=== PATIENT | female | born 1935 | race Caucasian/White ===

== ENCOUNTER 2016-05-06 13:26 | Outpatient (CLI) | payer OTHER, BC ==
--- NOTE | 2016-05-06 19:10 | DIAGNOSTIC IMAGING REPORT ---
PROCEDURE: US ART LOWER EXT WITH KASSANDRA-B/L INDICATION: Peripheral vascular disease. Left os cyanosis. TECHNIQUE: Preexercise ABIs were performed. The patient was exercised (toe-ups) and postexercise ABIs were repeated followed by color Doppler duplex imaging of the lower extremities. COMPARISON: None. FINDINGS: Preliminary images demonstrate monophasic flow in the abdominal aorta (53 cm second) with marked calcified atheromatous changes. RIGHT LOWER EXTREMITY: ABIs: Pre exercise ABIs are severely diminished (posterior tibial 0.441, dorsalis pedis 0.44), and worsened with exercise (posterior tibial 0.23, dorsalis pedis 0.20). VESSELS: Moderate calcified atheromatous changes of the right lower extremity arterial system. RIGHT LOWER EXTREMITY PEAK SYSTOLIC VELOCITIES: External iliac: Monophasic 71 cm/second. Common femoral artery: Monophasic 85 cm/second. Profunda femoral artery: Monophasic 61 cm/second. Proximal superficial femoral artery: Monophasic 52 cm/second. Mid superficial femoral artery: Monophasic 59 cm/second. Distal superficial femoral artery: Monophasic 72 cm/second. Popliteal artery: Monophasic 35 cm/second. Proximal posterior tibial artery: Monophasic 22 cm/second. Proximal anterior tibial artery: Monophasic 45 cm/second. Peroneal artery: N/A cm/second. Distal posterior tibial artery: Monophasic 22 cm/second. Dorsalis pedis artery: Monophasic 33 cm/second. LEFT LOWER EXTREMITY: ABIs: Pre exercise ABIs are severely diminished (posterior tibial 0.47, dorsalis pedis 0.35) and for seen following exercise (posterior tibial 0.20, dorsalis pedis 0.15). VESSELS: Moderate calcified atheromatous change of the left lower extremity arterial system. LEFT LOWER EXTREMITY PEAK SYSTOLIC VELOCITIES: External iliac: Monophasic 43 cm/second. Common femoral artery: Monophasic 27 cm/second. Profunda femoral artery: Monophasic 41 cm/second. Proximal superficial femoral artery: Monophasic 348 cm/second. Mid superficial femoral artery: Monophasic 56 cm/second. Distal superficial femoral artery: Monophasic 70 cm/second. Popliteal artery: Monophasic 45 cm/second. Proximal posterior tibial artery: Monophasic 31 cm/second. Proximal anterior tibial artery: Monophasic 27 cm/second. Peroneal artery: N/A cm/second. Distal posterior tibial artery: Monophasic 30 cm/second. Dorsalis pedis artery: Monophasic 24 cm/second. IMPRESSION: 1. Marked calcified atheromatous changes abdominal aorta with monophasic flow. 2. Moderate calcified atheromatous changes of the lower extremity arterial vascular systems. 3. There is severe pre and postexercise arterial insufficiency of the right lower extremity secondary to calcified atheromatous changes with monophasic flow throughout all vessels. 4. There is severe pre and postexercise arterial insufficiency of the left lower extremity secondary to calcified atheromatous changes with monophasic flow throughout all vessels, and high-grade 50-99% stenosis in the proximal left superficial femoral artery (velocity 348 cm second). 5. Findings called to DELFINA Georges. 6. Findings called to Dr. Devon Noguera (as requested).
== END 2016-05-06 23:00 ==
LOC: US SRH 13:26
DX: I73.89 Other specified peripheral vascular diseases (principal); I70.202 Unspecified atherosclerosis of native arteries of extremities, left leg

== ENCOUNTER 2016-05-07 11:21 | Outpatient (CLI) | payer OTHER, BC ==
--- NOTE | 2016-05-07 16:20 | DIAGNOSTIC IMAGING REPORT ---
PROCEDURE: CTA ARTERIAL RUNOFF W/CONTRAST INDICATION: F/U VASCULAR US,MONO PHASIC FLOW,SEVERE CYANOSIS TOE TECHNIQUE: Thin slice axial scans obtained from the lower chest to the feet following 185 ml Isovue 370. Coronal and sagittal re-formations. COMPARISON: Bilateral lower extremity arterial duplex ultrasound 05/06/2016 FINDINGS: Moderate atherosclerosis of the aorta which is patent without dissection or aneurysm. Severe atherosclerosis of the right common and external iliac arteries with scattered high-grade 50-99% stenoses. Severe atherosclerosis of the left common iliac artery with high-grade 50-99% stenosis and a 5 cm long occluded segment of the left external iliac artery with reconstitution distally via collaterals. 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 Right lower extremity: Diffuse moderate atherosclerosis with diffuse severe narrowing of the distal posterior tibial artery and minimal flow at the ankle . Left lower extremity: Diffuse moderate atherosclerosis with high-grade stenosis of the proximal SFA. Visualized liver and spleen are normal. The gallbladder, pancreas, adrenal glands and kidneys are normal. Normal appendix. Mild diverticulosis. IMPRESSION: 1. Moderate diffuse atherosclerosis 2. 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 Scattered high-grade 50-99% stenoses of the right common and external iliac arteries 5. Diffuse severe narrowing of the distal right posterior tibial artery with minimal flow at the ankle 6. High-grade stenosis of the left proximal SFA
== END 2016-05-07 23:00 ==
LOC: CT SRH 11:21
DX: R23.0 Cyanosis (principal); I72.3 Aneurysm of iliac artery; I77.1 Stricture of artery; I70.202 Unspecified atherosclerosis of native arteries of extremities, left leg

== ENCOUNTER 2016-05-11 08:53 | Emergency (ER) | payer OTHER, BC ==
--- NOTE | 2016-05-11 12:11 | ED ORDER SUMMARY ---
..... Patient: GAVINO CLEVELAND OrderSheet [facility] VisitID: [id number] [address] [place] [address] 80y, F Registration Date/Time: 05/11/2016 ORDER SHEET Weight: 68.0 kg (stated) Allergies: Sudafed GENERAL ORDERS: MEDICATION ORDERS: IV FLUIDS: Demerol IV 12.5 mg (NOW) (10:35 05/11/2016 aKya GOLDEN) (10:54 Jessica Curry.N.) IV Saline Lock (10:35 05/11/2016 Kaya GOLDEN) (10:54 Jessica R.N.) ORDER SHEET NOTES: [Electronically signed by Jose Guadalupe Nicole R.N. (12:32 05/11/2016)] [Electronically signed by Klaus Argueta MD (14:27 05/12/2016)] [Electronically locked/signed by Jose Guadalupe Nicole R.N. (12:32 05/11/2016)]
--- NOTE | 2016-05-11 12:11 | ED ORDER SUMMARY ---
..... Patient: GAVINO CLEVELAND OrderSheet [facility] VisitID: [id number] [address] [place] [address] 80y, F Registration Date/Time: 05/11/2016 ORDER SHEET Weight: 68.0 kg (stated) Allergies: Sudafed GENERAL ORDERS: MEDICATION ORDERS: IV FLUIDS: Demerol IV 12.5 mg (NOW) (10:35 05/11/2016 Kaya GOLDEN) (10:54 Jessica Curry.N.) IV Saline Lock (10:35 05/11/2016 Kaya GOLDEN) (10:54 Jessica R.N.) ORDER SHEET NOTES: [Electronically signed by Jose Guadalupe Nicole R.N. (12:32 05/11/2016)] [Electronically signed by Klaus Argueta MD (14:27 05/12/2016)] [Electronically locked/signed by Jose Guadalupe Nicole R.N. (12:32 05/11/2016)]
--- NOTE | 2016-05-11 12:11 | ED CLINICAL REPORT ---
Clinical Report - Physicians/Mid Levels [facility] [address] [address] 05/11/2016 8:57 Patient: GAVINO CLEVELAND Time Seen: 10:19 May 11 2016. Arrived- By private vehicle. Historian- patient. CPT: ER phys charges level 4 (#[id number]). HISTORY OF PRESENT ILLNESS Chief Complaint: LOWER EXTREMITY PAIN. Severity is described as being moderate. It has become recently worse. The quality is noted to be aching and "pain". Modifying factors- worsened by walking. Relieved by sitting. This started last night and is still present (worse; Purple 5th toe is chronic but pain is new. Due to see Dr Noguera tomorrow for appointment to discuss this very issue.). Symptoms located in the area of the left foot. The patient has had swelling. She has had difficulty walking. Sensory loss. Patient denies an injury. Similar symptoms previously: Milder. Recent medical care: The patient was seen recently at another facility in the office. Seen for similar symptoms. Evaluation/treatment- Vascular studies showing occlusion. ( Due to discuss results with Dr Noguera tomorrow in the office.). REVIEW OF SYSTEMS No cough, chest pain, difficulty breathing, fever or skin rash. No enlarged lymph nodes, sore throat, abdominal pain, vomiting or diarrhea. No black stools, difficulty with urination or bloody stools. All systems otherwise negative, except as recorded above. PAST HISTORY Hypertension. Moderate peripheral vascular disease: involving the left leg with claudication. ( COPD HHN QID). Hyperlipidemia. Additional Surgeries: no known surgeries. Medications: Ipratropium-Albuterol Inhalation (Solution 0.5-2.5 (3) mg/3mL). Metoprolol Tartrate Oral 25 mg, bid. Uses oxygen at night . Advil Oral, as needed. Benadryl Oral, as needed. Allergies: Sudafed. SOCIAL HISTORY Never smoker. No alcohol use or drug use. ADDITIONAL NOTES The nursing notes have been reviewed. PHYSICAL EXAM Vital Signs: 05/11/2016 09:05 BP: 183/60. HR: 82. RR: 16. O2 saturation: 93%. Temp: 98 F. Pain level now: 8/10. Appearance: Alert. Patient in mild distress. Eyes: Eyes normal inspection. ENT: Pharynx normal. Neck: Normal inspection. CVS: Normal heart rate and rhythm. Respiratory: No respiratory distress. Decreased air movement. Back: No tenderness. Skin: Skin intact. Skin warm and dry. Normal skin color. (other than noted above). Extremities: Left foot: moderate tenderness, mild swelling and medium sized ecchymosis of the fifth toe. Limited weight bearing secondary to pain. (Isolated left , small toe with vascular insufficiency and ecchymosis. Both feet are otherwise symmetric in appearance, are warm, pink and non-tender.). Neuro: Oriented X 3. No motor deficit. No sensory deficit. PROGRESS AND PROCEDURES Course of Care: Heplock Demerol 12.5 mg IV Patient is stable. Symptoms much better. Discussed case with patient's primary care provider, (Poornima). Reviewed test results. Agreed upon treatment plan. Health care provider will see patient in office. Patient/family counseled. Disposition: Discharged. Condition: unchanged. CLINICAL IMPRESSION Acute vascular insufficiency to the left small toe. INSTRUCTIONS Your Current Medications: CONTINUE TAKING THE FOLLOWING MEDICATIONS: Advil Oral : prn. Benadryl Oral : prn. Ipratropium-Albuterol Inhalation : Solution 0.5-2.5 (3) mg/3mL. Metoprolol Tartrate Oral : 25 mg bid. Uses oxygen at night *. Prescription Medications: Hydrocodone/APAP 5mg/325mg: take 1 to 2 orally every 6 hours as needed for pain. Dispense fifteen (15). No refills. Follow-up: Return to the emergency department If pain or blue color changes increase. Understanding of the discharge instructions verbalized by patient and family. Follow-up with: Devon Noguera MD, General Surgeon, , [facility], [address] [place] [address] Follow up tomorrow as scheduled. (Electronically signed by Klaus Argueta MD 05/12/2016 14:27)
--- NOTE | 2016-05-11 12:11 | ED NURSING NOTES ---
Clinical Report - Nurses [facility] [address] [place] [address] 05/11/2016 8:57 Patient: GAVINO CLEVELAND TRIAGE Triage time 0905. Chief Complaint: INJURY TO THE LEFT FIFTH TOE (NO INJURY, pain and redness). --09:08 Jose Guadalupe Nicole R.N. 09:05 05/11/16. BP: 183/60. HR: 82. RR: 16. O2 saturation: 93%. Temp: 98 F (oral). Pain level now: 12/10. --09:08 Jose Guadalupe Nicole R.N. Alert. No acute distress. KAZ COMA SCORE: Kaz Coma Scale: 15- eyes open spontaneously (4); best verbal response- oriented x 4 (5); best motor response- obeys commands (6). --09:09 Jose Guadalupe Nicole R.N. Weight: 68 kg stated. Height/Length: 60 inches Per Patient. BMI: 29.3. --09:08 Jose Guadalupe Nicole R.N. Medications Advil Oral, as needed. Benadryl Oral, as needed. --09:06 Jose Guadalupe Nicole R.N. Metoprolol Tartrate Oral 25 mg, bid. Uses oxygen at night . --09:06 Jose Guadalupe Nicole R.N. Ipratropium-Albuterol Inhalation (Solution 0.5-2.5 (3) mg/3mL). --09:07 Jose Guadalupe Nicole R.N. Allergies Sudafed. --09:06 Jose Guadalupe Nicole R.N. History Arrived by private vehicle. Historian: patient. Accompanied by family. The patient has had trouble walking. SOCIAL HX: Never smoker. Alcohol use. (no). History of drug use. (no). FALL RISK ASSESSMENT: Fall risk assessment completed. No fall risk identified. NUTRITIONAL RISK ASSESSMENT: The nutritional risk assessment revealed no deficiencies. FUNCTIONAL ASSESSMENT: Functional assessment: no impairments noted. LEARNING NEEDS ASSESSMENT: The learning needs assessment revealed no barriers. SKIN INTEGRITY ASSESSMENT: Skin integrity risk assessment completed. No skin integrity risk identified. --09:08 Jose Guadalupe Nicole R.N. PROBLEMS: Atypical Chest Pain. Hypertension. Hypercholesterolemia. Allergies. COPD - Chronic Obstructive Pulmonary Disease. --09:07 Jose Guadalupe Nicole R.N. ADDITIONAL SURGERIES: no known surgeries. PHYSICAL ASSESSMENT Ambulatory to room. GENERAL / NEURO / PSYCH: Oriented X 4. Alert. Appears in no acute distress. EXTREMITIES: Pain with weight bearing. SKIN: Skin is pale. --09:13 Jose Guadalupe Nicole R.N. NURSING PROGRESS NOTES 10:54 05/11/2016 Site #1 started via IV in the right antecubital space with an 18g angiocath; one attempt. Blood drawn: rainbow set. Labeled in the presence of the patient and held. Saline lock flushed with 10 mL saline. --10:54 Jose Guadalupe Nicole R.N. 10:54 05/11/2016 Demerol (Meperidine HCl) IVP 12.5 mg given over 2 minute(s) via site #1. Allergies verified and confirmed 5 rights. IV patency established. IV site checked: no pain, redness, or swelling. IV flushed thoroughly pre- and post-medication administration. IVP given by RN. --10:54 Jose Guadalupe Nicole R.N. The patient is calm and resting quietly. Overall patient status is improved- she states feels better. --11:48 Jose Guadalupe Nicole R.N. 11:47 05/11/16. BP: 155/53. HR: 51. RR: 16. O2 saturation: 99%. Pain level now: 08/10. --11:48 Jose Guadalupe Nicole R.N. DISPOSITION / DISCHARGE Condition at departure: improved. The goals identified in the patient's plan of care were met. No learning barriers present. Discharge instructions provided and reviewed with the patient. Reviewed medication(s) side effects, precautions, dosing and course information. Prescription(s) given to the patient. Reviewed foot care instructions. Reviewed referral to a surgeon. Reviewed need for increased fluid intake. Activity restrictions (minimal use of injured extremity) reviewed. Follow up contact number. Patient verbalized understanding. Written instructions provided in Greek. The patient was discharged home and accompanied by family. She left the Emergency Department ambulatory and via private vehicle. Family member driving. FALL RISK ASSESSMENT: Fall risk assessment completed. No fall risk identified. --12:31 Jose Guadalupe Nicole R.N. 12:29 05/11/16. BP: 155/53. HR: 65. RR: 16. O2 saturation: 100% on room air. Temp: 98 F. Pain level now: 09/09. --12:31 Jose Guadalupe Nicole R.N. Departure time: 1231 PM. --12:31 Jose Guadalupe Nicole R.N. 12:31 05/11/2016 Site #1 removed upon discharge. Catheter intact. Pressure dressing applied. --12:31 Jose Guadalupe Nicole R.N. Locked/Released at 05/11/2016 12:32 by Jose Guadalupe Nicole R.N.
--- NOTE | 2016-05-11 12:11 | ED CLINICAL REPORT ---
Clinical Report - Physicians/Mid Levels [facility] [address] [address] 05/11/2016 8:57 Patient: GAVINO CLEVELAND Time Seen: 10:19 May 11 2016. Arrived- By private vehicle. Historian- patient. CPT: ER phys charges level 4 (#[id number]). HISTORY OF PRESENT ILLNESS Chief Complaint: LOWER EXTREMITY PAIN. Severity is described as being moderate. It has become recently worse. The quality is noted to be aching and "pain". Modifying factors- worsened by walking. Relieved by sitting. This started last night and is still present (worse; Purple 5th toe is chronic but pain is new. Due to see Dr Noguera tomorrow for appointment to discuss this very issue.). Symptoms located in the area of the left foot. The patient has had swelling. She has had difficulty walking. Sensory loss. Patient denies an injury. Similar symptoms previously: Milder. Recent medical care: The patient was seen recently at another facility in the office. Seen for similar symptoms. Evaluation/treatment- Vascular studies showing occlusion. ( Due to discuss results with Dr Noguera tomorrow in the office.). REVIEW OF SYSTEMS No cough, chest pain, difficulty breathing, fever or skin rash. No enlarged lymph nodes, sore throat, abdominal pain, vomiting or diarrhea. No black stools, difficulty with urination or bloody stools. All systems otherwise negative, except as recorded above. PAST HISTORY Hypertension. Moderate peripheral vascular disease: involving the left leg with claudication. ( COPD HHN QID). Hyperlipidemia. Additional Surgeries: no known surgeries. Medications: Ipratropium-Albuterol Inhalation (Solution 0.5-2.5 (3) mg/3mL). Metoprolol Tartrate Oral 25 mg, bid. Uses oxygen at night . Advil Oral, as needed. Benadryl Oral, as needed. Allergies: Sudafed. SOCIAL HISTORY Never smoker. No alcohol use or drug use. ADDITIONAL NOTES The nursing notes have been reviewed. PHYSICAL EXAM Vital Signs: 05/11/2016 09:05 BP: 183/60. HR: 82. RR: 16. O2 saturation: 93%. Temp: 98 F. Pain level now: 8/10. Appearance: Alert. Patient in mild distress. Eyes: Eyes normal inspection. ENT: Pharynx normal. Neck: Normal inspection. CVS: Normal heart rate and rhythm. Respiratory: No respiratory distress. Decreased air movement. Back: No tenderness. Skin: Skin intact. Skin warm and dry. Normal skin color. (other than noted above). Extremities: Left foot: moderate tenderness, mild swelling and medium sized ecchymosis of the fifth toe. Limited weight bearing secondary to pain. (Isolated left , small toe with vascular insufficiency and ecchymosis. Both feet are otherwise symmetric in appearance, are warm, pink and non-tender.). Neuro: Oriented X 3. No motor deficit. No sensory deficit. PROGRESS AND PROCEDURES Course of Care: Heplock Demerol 12.5 mg IV Patient is stable. Symptoms much better. Discussed case with patient's primary care provider, (Poornima). Reviewed test results. Agreed upon treatment plan. Health care provider will see patient in office. Patient/family counseled. Disposition: Discharged. Condition: unchanged. CLINICAL IMPRESSION Acute vascular insufficiency to the left small toe. INSTRUCTIONS Your Current Medications: CONTINUE TAKING THE FOLLOWING MEDICATIONS: Advil Oral : prn. Benadryl Oral : prn. Ipratropium-Albuterol Inhalation : Solution 0.5-2.5 (3) mg/3mL. Metoprolol Tartrate Oral : 25 mg bid. Uses oxygen at night *. Prescription Medications: Hydrocodone/APAP 5mg/325mg: take 1 to 2 orally every 6 hours as needed for pain. Dispense fifteen (15). No refills. Follow-up: Return to the emergency department If pain or blue color changes increase. Understanding of the discharge instructions verbalized by patient and family. Follow-up with: Devon Noguera MD, General Surgeon, , [facility], [address] [place] [address] Follow up tomorrow as scheduled. (Electronically signed by Klaus Argueta MD 05/12/2016 14:27)
--- NOTE | 2016-05-12 14:27 | ED MAR SUMMARY ---
..... Medication Administration Record [facility] [address] [place] [address] Patient: GAVINO CLEVELAND Visit ID: [id number] 80y, F Weight: 68.0 kg Height/Length: 60 in BMI: 29.3 ALLERGIES: Sudafed Given 10:54 05/11/2016 Jose Guadalupe Nicole RJacque Medication Administered: DEMEROL [IVP] (MEPERIDINE HCL), Dose: 12.5 mg IVP over 2 minute(s), Site: #1 right AC. Medication Ordered: Demerol IV 12.5 mg (NOW).
--- NOTE | 2016-05-12 14:27 | ED DISCHARGE INSTRUCTIONS ---
Patient: GAVINO CLEVELAND General Instructions [facility] VisitID: [id number] [address] [place] [address] 80y, F Registration Date/Time: 05/11/2016 Acute vascular insufficiency to the left small toe. INSTRUCTIONS Your Current Medications: CONTINUE TAKING THE FOLLOWING MEDICATIONS: Advil Oral : prn. Benadryl Oral : prn. Ipratropium-Albuterol Inhalation : Solution 0.5-2.5 (3) mg/3mL. Metoprolol Tartrate Oral : 25 mg bid. Uses oxygen at night *. Prescription Medications: Hydrocodone/APAP 5mg/325mg: take 1 to 2 orally every 6 hours as needed for pain. Dispense fifteen (15). No refills. Follow-up: Return to the emergency department If pain or blue color changes increase. Understanding of the discharge instructions verbalized by patient and family. Follow-up with: Devon Noguera MD, General Surgeon, , [facility], [address] [place] [address] Follow up tomorrow as scheduled. (Electronically signed by Klaus Argueta MD 05/12/2016 14:27)
--- NOTE | 2016-05-12 14:27 | ED MED RECONCILIATION SUMMARY ---
Patient: GAVINO CLEVELAND Medication Reconciliation Report [facility] VisitID: [id number] [address] [place] [address] 80y, F Registration Date/Time: 05/11/2016 Weight: 68.0 kg Height/Length: 60 in. BMI: 29.3 ALLERGIES: Sudafed The patient's Home Medications are listed below: CONTINUE TAKING THE FOLLOWING MEDICATIONS: Advil Oral Benadryl Oral Ipratropium-Albuterol Inhalation (0.5-2.5 (3) mg/3mL) Metoprolol Tartrate Oral 25 mg, bid Uses oxygen at night The source(s) of the original Home Medication information: Not obtained. The following Medications were given to the patient in the Emergency Department: Demerol [IVP] IVP 12.5 mg, administered: 05/11/2016 10:54:00 AM The following Medications were prescribed to the patient: Hydrocodone/APAP 5mg/325mg: take 1 to 2 orally every 6 hours as needed for pain. Dispense fifteen (15). No refills. -- Klaus Argueta MD
--- NOTE | 2016-05-12 14:27 | ED MAR SUMMARY ---
..... Medication Administration Record [facility] [address] [place] [address] Patient: GAVINO CLEVELAND Visit ID: [id number] 80y, F Weight: 68.0 kg Height/Length: 60 in BMI: 29.3 ALLERGIES: Sudafed Given 10:54 05/11/2016 Jose Guadalupe Nicole RJacque Medication Administered: DEMEROL [IVP] (MEPERIDINE HCL), Dose: 12.5 mg IVP over 2 minute(s), Site: #1 right AC. Medication Ordered: Demerol IV 12.5 mg (NOW).
--- NOTE | 2016-05-12 14:27 | ED DISCHARGE INSTRUCTIONS ---
Patient: GAVINO CLEVELAND General Instructions [facility] VisitID: [id number] [address] [place] [address] 80y, F Registration Date/Time: 05/11/2016 Acute vascular insufficiency to the left small toe. INSTRUCTIONS Your Current Medications: CONTINUE TAKING THE FOLLOWING MEDICATIONS: Advil Oral : prn. Benadryl Oral : prn. Ipratropium-Albuterol Inhalation : Solution 0.5-2.5 (3) mg/3mL. Metoprolol Tartrate Oral : 25 mg bid. Uses oxygen at night *. Prescription Medications: Hydrocodone/APAP 5mg/325mg: take 1 to 2 orally every 6 hours as needed for pain. Dispense fifteen (15). No refills. Follow-up: Return to the emergency department If pain or blue color changes increase. Understanding of the discharge instructions verbalized by patient and family. Follow-up with: Devon Noguera MD, General Surgeon, , [facility], [address] [place] [address] Follow up tomorrow as scheduled. (Electronically signed by Klaus Argueta MD 05/12/2016 14:27)
--- NOTE | 2016-05-12 14:27 | ED MED RECONCILIATION SUMMARY ---
Patient: GAVINO CLEVELAND Medication Reconciliation Report [facility] VisitID: [id number] [address] [place] [address] 80y, F Registration Date/Time: 05/11/2016 Weight: 68.0 kg Height/Length: 60 in. BMI: 29.3 ALLERGIES: Sudafed The patient's Home Medications are listed below: CONTINUE TAKING THE FOLLOWING MEDICATIONS: Advil Oral Benadryl Oral Ipratropium-Albuterol Inhalation (0.5-2.5 (3) mg/3mL) Metoprolol Tartrate Oral 25 mg, bid Uses oxygen at night The source(s) of the original Home Medication information: Not obtained. The following Medications were given to the patient in the Emergency Department: Demerol [IVP] IVP 12.5 mg, administered: 05/11/2016 10:54:00 AM The following Medications were prescribed to the patient: Hydrocodone/APAP 5mg/325mg: take 1 to 2 orally every 6 hours as needed for pain. Dispense fifteen (15). No refills. -- Klaus Argueta MD
== END 2016-05-11 12:33 | disposition home or self-care (01) ==
LOC: ED SRH 08:53
DX: I99.8 Other disorder of circulatory system (principal); E78.00 Pure hypercholesterolemia, unspecified; I10 Essential (primary) hypertension; J44.9 Chronic obstructive pulmonary disease, unspecified; Z79.899 Other long term (current) drug therapy; Z88.8 Allergy status to other drugs, medicaments and biological substances

== ENCOUNTER 2016-05-15 09:44 | Outpatient (CLI) | payer OTHER, BC ==
--- NOTE | 2016-05-15 13:34 | DIAGNOSTIC IMAGING REPORT ---
PROCEDURE: US BILATERAL CAROTID DOPPLER INDICATION: BRUIT,BILATERAL TECHNIQUE: Color Doppler duplex imaging of the carotid and vertebral vessels. COMPARISON: None. FINDINGS: Moderate plaque formation of the bifurcations bilaterally with possible ulcerative plaque of the left bifurcation and ICA. Tortuous bilateral ICA's. Vessels are patent. Right common carotid artery peak systolic velocity 65 cm/second. Right internal carotid artery peak systolic velocity 142 cm/second. Right external carotid artery peak systolic velocity 194 cm/second. Right lxuhnrtz-vb-kjfytj carotid artery ratio 2.1 Right vertebral artery peak systolic velocity 102 cm/second antegrade. Left common carotid artery peak systolic velocity 71 cm/second. Left internal carotid artery peak systolic velocity 134 cm/second. Left external carotid artery peak systolic velocity 343 cm/second. Left qdkjrvjy-sa-hgfsgv carotid artery ratio 1.9 Left vertebral artery peak systolic velocity 113 cm/second antegrade. IMPRESSION: 1. 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 Bilateral ICA 50-69% stenosis 3. Bilateral ECA 50-99% stenosis Velocity criteria are extrapolated from diameter data as defined by the Society of Radiologists in Ultrasound Consensus Conference, Radiology 2003; 229; 340-346.
--- NOTE | 2016-05-15 13:34 | DIAGNOSTIC IMAGING REPORT ---
PROCEDURE: US BILATERAL CAROTID DOPPLER INDICATION: BRUIT,BILATERAL TECHNIQUE: Color Doppler duplex imaging of the carotid and vertebral vessels. COMPARISON: None. FINDINGS: Moderate plaque formation of the bifurcations bilaterally with possible ulcerative plaque of the left bifurcation and ICA. Tortuous bilateral ICA's. Vessels are patent. Right common carotid artery peak systolic velocity 65 cm/second. Right internal carotid artery peak systolic velocity 142 cm/second. Right external carotid artery peak systolic velocity 194 cm/second. Right zhirfgkn-za-wmidbn carotid artery ratio 2.1 Right vertebral artery peak systolic velocity 102 cm/second antegrade. Left common carotid artery peak systolic velocity 71 cm/second. Left internal carotid artery peak systolic velocity 134 cm/second. Left external carotid artery peak systolic velocity 343 cm/second. Left mceeerbj-qf-hlknsx carotid artery ratio 1.9 Left vertebral artery peak systolic velocity 113 cm/second antegrade. IMPRESSION: 1. 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 Bilateral ICA 50-69% stenosis 3. Bilateral ECA 50-99% stenosis Velocity criteria are extrapolated from diameter data as defined by the Society of Radiologists in Ultrasound Consensus Conference, Radiology 2003; 229; 340-346.
== END 2016-05-15 23:00 ==
LOC: US SRH 09:44
DX: I65.23 Occlusion and stenosis of bilateral carotid arteries (principal)

== ENCOUNTER 2016-06-06 08:02 | Inpatient (IN) | payer OTHER, BC ==
[~2016-06-06] VITALS: Ht 152.4 cm; Wt 65.4 kg
--- NOTE | 2016-06-06 09:31 | DIAGNOSTIC IMAGING REPORT ---
PROCEDURE: XR CHEST 1 VIEW INDICATION: SHORTNESS OF BREATH TECHNIQUE: Portable AP view 08:31 a.m. COMPARISON: Chest x-ray 01/22/2013 FINDINGS: Mild left basilar scarring. Heart and mediastinum are normal. Thorax is normal. IMPRESSION: 1. Mild left basilar scarring.
--- NOTE | 2016-06-06 09:53 | ED ORDER SUMMARY ---
..... 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 Distress) (08:15 06/06/2016 Sol Flanagan) (Ack 8:19 TBergley) (8:40 LWhalen R.N.) Oxygen (titrate to sats > 94%) (Non-Rebreather Mask) (08:15 06/06/2016 Sol Flanagan) (Ack 8:19 TBergley) (8:40 LWhalen R.N.) CBC w Diff Urgent (08:06/06/2016 Sol Flanagan) (Ack 8:17 TBergley) (8:41 LWhalen R.N.) CMP Urgent (08:16 06/06/2016 Sol Flanagan) (Ack 8:17 TBergley) (8:41 LWhalen R.N.) UA-Culture if indicated Urgent (08:16 06/06/2016 Sol Flanagan) (Ack 8:17 TBergley) (8:40 LWhalen R.N.) Lactate, Serum Urgent (08:06/06/2016 Sol Flanagan) (Ack 8:17 TBergley) (8:40 LWhalen R.N.) Pulse oximeter (08:16 06/06/2016 Sol Flanagan) (Ack 8:19 TBergley) (8:40 LWhalen R.N.) Troponin-I Urgent (08:44 06/06/2016 Sol Flanagan) (Ack 8:46 TBergley) BNP Urgent (08:45 06/06/2016 Sol Flanagan) (Ack 8:46 TBergley) Rapid Influenza Screen (Nasal Pharyngeal) (swab) Urgent (10:49 06/06/2016 Kaya GOLDEN) (Ack 10:51 TBergley) MEDICATION ORDERS: Albuterol Neb Tx 7.5 mg (one now over 1 hour) (08:16 06/06/2016 Sol Flanagan) (8:28 Lolita) Diltiazem PO 30 mg (NOW) (10:00 06/06/2016 Kaya GOLDEN) (10:21 LWhalen R.N.) IV FLUIDS: Decadron IV 10 mg (NOW) (08:16 06/06/2016 Sol Flanagan) (8:40 LWhalen R.N.) IV Saline Lock (08:16 06/06/2016 Sol Flanagan) (Ack 8:41 LWhalen R.N.) (11:21 LWhalen R.N.) Cardizem IV 12 mg IV (NOW) (09:38 06/06/2016 Kaya GOLDEN) (10:06 LWhalen R.N.) Diltiazem IV 10 mg (NOW) (09:59 06/06/2016 Kaya GOLDEN) (10:21 LWhalen R.N.) Rocephin IV 2 gm/50mL (NOW) (10:03 06/06/2016 Kaya GOLDEN) (10:23 LWhalen R.N.) ORDER SHEET NOTES: [Electronically signed by Larissa Mcdaniel R.N. (14:55 06/06/2016)] [Electronically signed by Klaus Argueta MD (21:42 06/09/2016)] [Electronically locked/signed by Larissa Mcdaniel R.N. (14:55 06/06/2016)]
--- NOTE | 2016-06-06 09:53 | ED ORDER SUMMARY ---
..... 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) (08:15 06/06/2016 Sol Flanagan) (Ack 8:19 TBergley) (8:40 LWhalen R.N.) Oxygen (titrate to sats > 94%) (Non-Rebreather Mask) (08:15 06/06/2016 Sol Flanagan) (Ack 8:19 TBergley) (8:40 LWhalen R.N.) CBC w Diff Urgent (08:06/06/2016 Sol Flanagan) (Ack 8:17 TBergley) (8:41 LWhalen R.N.) CMP Urgent (08:16 06/06/2016 Sol Flanagan) (Ack 8:17 TBergley) (8:41 LWhalen R.N.) UA-Culture if indicated Urgent (08:16 06/06/2016 Sol Flanagan) (Ack 8:17 TBergley) (8:40 LWhalen R.N.) Lactate, Serum Urgent (08:06/06/2016 Sol Flanagan) (Ack 8:17 TBergley) (8:40 LWhalen R.N.) Pulse oximeter (08:16 06/06/2016 Sol Flanagan) (Ack 8:19 TBergley) (8:40 LWhalen R.N.) Troponin-I Urgent (08:44 06/06/2016 Sol Flanagan) (Ack 8:46 TBergley) BNP Urgent (08:45 06/06/2016 Sol Flanagan) (Ack 8:46 TBergley) Rapid Influenza Screen (Nasal Pharyngeal) (swab) Urgent (10:49 06/06/2016 Kaya GOLDEN) (Ack 10:51 TBergley) MEDICATION ORDERS: Albuterol Neb Tx 7.5 mg (one now over 1 hour) (08:16 06/06/2016 Sol Flanagan) (8:28 Lolita) Diltiazem PO 30 mg (NOW) (10:00 06/06/2016 Kaya GOLDEN) (10:21 LWhalen R.N.) IV FLUIDS: Decadron IV 10 mg (NOW) (08:16 06/06/2016 Sol Flanagan) (8:40 LWhalen R.N.) IV Saline Lock (08:16 06/06/2016 Sol Flanagan) (Ack 8:41 LWhalen R.N.) (11:21 LWhalen R.N.) Cardizem IV 12 mg IV (NOW) (09:38 06/06/2016 Kaya GOLDEN) (10:06 LWhalen R.N.) Diltiazem IV 10 mg (NOW) (09:59 06/06/2016 Kaya GOLDEN) (10:21 LWhalen R.N.) Rocephin IV 2 gm/50mL (NOW) (10:03 06/06/2016 Kaya GOLDEN) (10:23 LWhalen R.N.) ORDER SHEET NOTES: [Electronically signed by Larissa Mcdaniel R.N. (14:55 06/06/2016)] [Electronically signed by Klaus Argueta MD (21:42 06/09/2016)] [Electronically locked/signed by Larissa Mcdaniel R.N. (14:55 06/06/2016)]
--- NOTE | 2016-06-06 09:53 | ED CLINICAL REPORT ---
Clinical Report - Physicians/Mid Levels [facility] [address] [place] [address] 06/06/2016 8:03 Patient: GAVINO CLEVELAND Time Seen: 0805; initial patient contact. Arrived- Patient did not arrive by ambulance. Historian- patient and EMS personnel. CPT: ER phys charges level 5 plus (#[id number]). EKG interpretation (#[id number]). HISTORY OF PRESENT ILLNESS Chief Complaint: DYSPNEA and HISTORY OF CHRONIC OBSTRUCTIVE PULMONARY DISEASE. This started past few days and is still present (staying the same). It was abrupt in onset and has been constant but is not gone now. The dyspnea is described as moderate and is worsened by exertion and is improved by rest. The patient has had a cough and wheezing. (Patient reports no recent antibiotic use. Patient had a recent procedure in which she described the blood vessels were opened up in her leg.). Similar symptoms previously: Many times. Recent medical care: Not recently seen/assessed. REVIEW OF SYSTEMS No muscle aches, sore throat or throat, nasal discharge or sinus drainage. No nausea, vomiting, headache, fainting episodes or blurred vision. No difficulty with urination, excessive urination, skin rash, enlarged lymph nodes or joint pain. No diabetic symptoms or easy bruising. The patient has had weakness. All systems otherwise negative, except as recorded above. PAST HISTORY See nurses notes. SOCIAL HISTORY Former smoker. No alcohol use or drug use. No recent travel. Is a local resident. ADDITIONAL NOTES The nursing notes have been reviewed. PHYSICAL EXAM Vital Signs: 06/06/2016 08:11 BP: 133/83. HR: 68. RR: 18. O2 saturation: 100%. Temp: 97.3 F. Blood pressure normal. Oxygen saturation normal. Appearance: Alert. No acute distress. (Wearing CPAP mask). Eyes: Pupils equal, round and reactive to light. Eyes normal inspection. ENT: Ears normal. Nose normal. Pharynx normal. Uvula midline. Neck: Normal inspection. No jugular venous distention. Neck supple. CVS: Normal heart rate and rhythm. Heart sounds normal. Pulses normal. Respiratory: Mild respiratory distress with accessory muscle use. Expiratory moderate bilateral wheezes diffusely. No stridor, rales or rhonchi. Abdomen: Soft and nontender. No organomegaly. Skin: Skin warm and dry. Normal skin color. No rash. Normal skin turgor. Extremities: Extremities exhibit normal ROM. No lower extremity edema. (left fifth toe is ecchymotic and slightly swollen. Tender to touch. No erythema. No crepitus. No bony abnormalities. No signs of ascending infection. Appears to be ischemic.). Neuro: Oriented X 3. No motor deficit. No sensory deficit. LABS, X-RAYS, AND EKG EKG: Normal sinus rhythm. Rate: 68. Normal P waves. Normal MARIAH. Normal QRS complex. Q waves in lead V1 and V2. Normal axis. Normal ST and T waves, QT and QTc. No ST elevation or depression. normal sinus. Q-waves. No acute ischemia. The study has been interpreted contemporaneously by me. The study has been independently viewed by me. The EKG appears to be a good tracing. EKG #2: Rate: 140. Atrial fibrillation. Non-specific ST segment / T wave abnormalities. Changes present when compared to prior EKG. The study has been interpreted contemporaneously. The study has been independently viewed by me. The EKG appears to be a good tracing. Chest X-ray: (Mild left basilar scarring). Views: AP (portable). Technique: good. The X-rays were independently viewed by me and interpreted by the radiologist. Laboratory Tests: CBC w Diff: (KAIN: 06/06/2016 08:45) ( MsgRcvd 06/06/2016 09:02) IP Test Result Flag Units (Reference) WHITE BLOOD COUNT 11.4 K/uL (4.5-11.5) RED BLOOD COUNT 4.48 M/uL (4.00-5.20) HEMOGLOBIN 9.0 L gm/dL (12.0-16.0) HEMATOCRIT 29.8 L % (36.0-46.0) MEAN CELL VOLUME 66 L fL (80-100) MEAN CORPUSCULAR HGB 20 L pg (26-34) MEAN CORPUSCULAR HGB CONC 30 L g/dL (31-37) RED CELL DISTRIBUTION WIDTH 22.4 H % (11.6-14.8) PLATELET COUNT 498 H K/uL (150-400) BNP: (KAIN: 06/06/2016 08:45) ( [facility] [place] [place] 09:19) Final results Test Result Flag Units (Reference) B-TYPE NATRIURETIC PEPTIDE 465 H pg/ml (5-100) Lactate, Serum: (KAIN: 06/06/2016 08:45) ( [facility] [place] 06/06/2016 09:18) Final results Test Result Flag Units (Reference) LACTIC ACID 1.3 mmol/L (0.4-2.0) CMP: (KAIN: 06/06/2016 08:45) ( [facility] 06/06/2016 09:13) Final results Test Result Flag Units (Reference) GLUCOSE 123 H mg/dL (70-110) BUN 11 mg/dL (7-18) CREATININE 0.8 mg/dL (0.6-1.3) Estimated GFR >60 mL/min Estimated GFR- >60 mL/min Note: Persistent reduction over 3 months in eGFR<60 mL/min/1.73 m2 defines CKD. Patients with eGFR values>=60 mL/min/1.73 m2 may also have CKD if evidence ofpersistent proteinuria. Additional information may be foundat www.[email or web address].org. SODIUM 140 mmol/L (136-145) POTASSIUM 3.9 mmol/L (3.5-5.1) CHLORIDE 101 mmol/L (98-107) CARBON DIOXIDE 31 mmol/L (21-32) CALCIUM 9.0 mg/dL (8.5-10.1) TOTAL PROTEIN 6.8 g/dL (6.4-8.2) ALBUMIN 3.2 L g/dL (3.3-5.0) BILIRUBIN, TOTAL 0.6 mg/dL (0.0-1.0) ALKALINE PHOSPHATASE 113 U/L (46-116) AST (SGOT) 26 U/L (15-37) ALT (SGPT) 32 U/L (12-78) TROPONIN I <0.05 ng/mL (0.00-1.5) TROPONIN REFERENCE RANGE:<0.1 NEGATIVE0.1-1.5 INDETERMINANT>1.5 POSITIVE . PROGRESS AND PROCEDURES Course of Care: The patient is a pleasant 80-year-old female with past medical history significant for COPD. Patient is wheezing on examination. Patient is presented for shortness of breath. At this time differential diagnosis includes COPD exacerbation, pneumonia, or upper respiratory tract infection. Laboratory studies and chest x-ray been ordered. EKG obtained by tech. No ST segmentchanges. Patient also with sick contact. Patient's daughter had upper respiratory tract symptoms per the patient. Workup is Currently pending at this time. At the change of shift, patient will be handed over to the oncoming doctor. Medics gave solumedrol and albuterol in route. 09:39 06/06/16. the nurse notes the patient is not tachycardic. She's been getting stacked albuterol treatments for her wheezing. Her monitor looks like a tachycardia in the 140s its irregular. Patient was previously in sinus rhythm. EKG is done and now she's now in atrial fibrillation with a rate of 140. Patient has a history of being in atrial fibrillation in the past. Diltiazem 12 mg IV delivered. 10:03 06/06/16. discussed with Dr. Morales hospitalist. We'll admit the patient to the hospital for exacerbation of COPD and rapid atrial fibrillation. Dr. Morales wishes to try another IV push of diltiazem followed by 30 mg by mouth to see if we can keep her off IV drip. Patient/family counseled. Old medical records ordered. Disposition orders written. Disposition: Admitted to Acute Care. CLINICAL IMPRESSION Acute exacerbation of COPD (emphysematous) ,paroxysmal atrial fibrillation. The patient has one or more high risk factors and/or two or more moderate risk factors for thromboembolism. The patient is not prescribed warfarin or another FDA approved anticoagulant because the cause of the atrial fibrillation is reversible or transient. (Electronically signed by Klaus Argueta MD 06/09/2016 21:42)
--- NOTE | 2016-06-06 09:53 | ED NURSING NOTES ---
Clinical Report - Nurses [facility] [address] [place] [address] 06/06/2016 8:03 Patient: GAVINO CLEVELAND TRIAGE Triage time 08:11 Jun 06 2016. Acuity: LEVEL 3. Chief Complaint: SHORTNESS OF BREATH, DIFFICULTY BREATHING and WHEEZING. KAYLA COMA SCORE: [place] Coma Scale: 15- eyes open spontaneously (4); best verbal response- oriented x 4 (5); best motor response- obeys commands (6). --08:19 Larissa Mcdaniel R.N. 08:11 06/06/16. BP: 133/83. HR: 68. RR: 18. O2 saturation: 100%. Temp: 97.3 F. Pain level now 0/10. --08:19 Larissa Mcdaniel R.N. Weight: 65.7 kg stated. Height/Length: 60 inches Per Patient. BMI: 28.3. --08:17 Larissa Mcdaniel R.N. Medications Benadryl Oral, as needed. --08:16 Larissa Mcdaniel R.N. Ipratropium-Albuterol Inhalation (Solution 0.5-2.5 (3) mg/3mL). Metoprolol Tartrate Oral 25 mg, bid. Uses oxygen at night . --08:16 Larissa Mcdaniel R.N. Allergies Sudafed. --08:16 Larissa Mcdaniel R.N. History Arrived by EMS, and from home. Historian: patient. The patient has had a cough and wheezing. No fever, chills, chest pain or back pain. PAST MEDICAL HX: Asthma. Chronic obstructive pulmonary disease. No history of congestive heart failure, diabetes mellitus or hypertension. Immunizations: up-to-date. SOCIAL HX: Smoker- current status unknown. No alcohol use or drug use. No infectious disease exposure. SELF HARM ASSESSMENT: A self harm assessment was performed. The patient answered "no" to the question "Have you recently felt down, depressed, or hopeless?" and "Do you have thoughts of harming or killing yourself?". FALL RISK ASSESSMENT: Fall risk assessment completed. No fall risk identified. NUTRITIONAL RISK ASSESSMENT: The nutritional risk assessment revealed no deficiencies. FUNCTIONAL ASSESSMENT: Functional assessment: no impairments noted. LEARNING NEEDS ASSESSMENT: The learning needs assessment revealed no barriers. ABUSE ASSESSMENT: Abuse assessment: (yes) The patient was asked "Do you feel safe in your home?". SKIN INTEGRITY ASSESSMENT: Skin integrity risk assessment completed. No skin integrity risk identified. --08:19 Larissa Mcdaniel R.N. PROBLEMS: Hyperlipidemia. Peripheral Vascular Disease. Atypical Chest Pain. Hypertension. Hypercholesterolemia. Allergies. COPD - Chronic Obstructive Pulmonary Disease. --08:17 Larissa Mcdaniel R.N. ADDITIONAL SURGERIES: no known surgeries. Interventions ID band on patient. --08:19 Larissa Mcdaniel R.N. PHYSICAL ASSESSMENT Ambulatory to room. GENERAL / NEURO / PSYCH: Alert. Oriented X 4. Appears in no acute distress. HEENT: Mucous membranes are pink. RESPIRATORY: Moderate respiratory distress. The patient can speak a few words at a time. Cough. Wheezing present. Rhonchi present. CVS: Normal sinus rhythm noted. Capillary refill less than 2 seconds. GI / : Abdomen soft and nontender. Bowel sounds within normal limits. ( Last BM this am). SKIN: Skin is warm and dry. Normal skin turgor. --08:20 Larissa Mcdaniel R.N. NURSING PROGRESS NOTES The initial plan of care for this patient has been created. Oxygen administered by [id number] at 10 liters. senior clinical research scientist, pulse oximeter and NIBP monitor placed on patient. Patient gowned. Head of bed elevated (45). Reassurance given. Call light placed in reach. Side rails up x 1. Bed placed in lowest position. Brakes of bed on. --08:21 Larissa Mcdaniel R.N. 08:15 06/06/2016 Site #1 started prior to arrival by EMS via IV in the right antecubital space with an 20g angiocath. --08:40 Larissa Mcdaniel R.N. 08:28 06/06/2016 Albuterol Neb TX Nebulizer 3 unit dose given. Given by the respiratory therapist. Allergies verified and confirmed 5 rights. --08:28 Etelvina Harper 08:40 06/06/2016 Decadron IVP 10 mg given over 2 minute(s) via site #1. Allergies verified and confirmed 5 rights. IV patency established. IV site checked: no pain, redness, or swelling. IV flushed thoroughly pre- and post-medication administration. --08:40 Larissa Mcdaniel R.N. 08:20 06/06/16. BP: 147/56. HR: 71. RR: 21. O2 saturation: 100% on nasal cannula at 8 liters/minute. Additional comments: Getting a neb treatment curretly . 08:11 06/06/16. BP: 133/83. HR: 68. RR: 18. O2 saturation: 100%. Temp: 97.3 F. Pain level now 0/10. 08:00 06/06/16. BP: 133/83. HR: 75. RR: 30. O2 saturation: 100% on Venti mask at 10 liters/minute. --08:51 Larissa Mcdaniel R.N. 09:24 06/06/16. BP: 117/61. HR: 136. RR: 26. O2 saturation: 96%. Pain level now 0/10. --09:25 Lairssa Mcdaniel R.N. 09:41 06/06/2016 Cardizem IVP 12 mg given over 2 minute(s) via site #1. Allergies verified and confirmed 5 rights. IV patency established. IV site checked: no pain, redness, or swelling. IV flushed thoroughly pre- and post-medication administration. --10:06 Larissa Mcdaniel R.N. ( H&P given to daughter to assist patient with filling out.). --10:13 Clari Hinojosa 10:21 06/06/2016 Diltiazem IVP 10 mg given over 2 minute(s) via site #1. Allergies verified and confirmed 5 rights. IV patency established. IV site checked: no pain, redness, or swelling. IV flushed thoroughly pre- and post-medication administration. --10:21 Larissa Mcdaniel R.N. 10:21 06/06/2016 Diltiazem PO Capsules 30 mg given. Allergies verified and confirmed 5 rights. --10:21 Larissa Mcdaniel R.N. 10:23 06/06/2016 Started 2 gm of Rocephin (CefTRIAXone Sodium) IVPB in bag #1 50 mL; at 150 mL/hr over 30 minute(s) via site #1 via IV pump. Allergies verified and confirmed 5 rights. IV patency established. IV site checked: no pain, redness, or swelling. IV flushed thoroughly pre- and post-medication administration. --10:23 Larissa Mcdaniel R.N. 10:23 06/06/16. BP: 119/64. HR: 106. RR: 32. O2 saturation: 93%. Pain level now 0/10. --10:24 Larissa Mcdaniel R.N. 10:45 06/06/16. BP: 139/91. HR: 117. RR: 18. O2 saturation: 91% on nasal cannula at 2 liters/minute. 10:23 06/06/16. BP: 119/64. HR: 106. RR: 32. O2 saturation: 93%. Pain level now 0/10. 10:10 06/06/16. BP: 108/67. HR: 99. RR: 24. O2 saturation: 94% on nasal cannula at 2 liters/minute. 09:55 06/06/16. BP: 119/64. HR: 120. RR: 22. O2 saturation: 95% on nasal cannula at 2 liters/minute. 09:30 06/06/16. BP: 114/75. HR: 119. RR: 28. O2 saturation: 95% on nasal cannula at 2 liters/minute. 09:24 06/06/16. BP: 117/61. HR: 136. RR: 26. O2 saturation: 96%. Pain level now 0/10. --11:18 Larissa Mcdaniel R.N. 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 --11:19 Larissa Mcdaniel R.N. 09:20 06/06/2016 Albuterol Neb TX discontinued due to improvement in patient condition. --11:20 Larissa Mcdaniel R.N. 10:55 06/06/2016 Rocephin IVPB Discontinued: bag #1 infused. Total amount infused: 50 mL. IV patency established. IV site checked: no pain, redness, or swelling. IV flushed thoroughly. --11:20 Larissa Mcdaniel R.N. DISPOSITION / DISCHARGE 12:00 06/06/16. BP: 125/59. HR: 105. RR: 26. O2 saturation: 96%. --14:54 Larissa Mcdaniel R.N. 11:55 06/06/2016 Site #[address] upon admission; patent. Good blood return present. --14:55 Larissa Mcdaniel R.N. 12:22 06/06/16. Departure time: 1220. Disposition: observation in Acute Care. Transported via stretcher by transport team with IV and O2. --12:23 Dimitrios Robertson R.N. Locked/Released at 06/06/2016 14:55 by Larissa Mcdaniel R.N.
[2016-06-06 12:56] VITALS: BP 111/43
--- NOTE | 2016-06-06 14:16 | History & Physical Report ---
Admission Admit Date 06/06/16 Information Source Information Source: Self, Family, ED Record History Chief Complaint SOB History of Present Illness 80yoF w/ hx of COPD, PVD, parox afib, who presents due to worsening SOB since last night. She states that one of her family members came home with a cold a couple days ago. She has felt chilled at home, but has not taken her temperature. She only uses O2 at night usually. She has been using all her nebulizers as prescribed 4xd. She does not get exacerbations frequently. She endorses cough, nonproductive. She just had a stent placed in her ?iliac a couple days ago, and states that she went into afib at that time. They increased her lopressor to 50mg 2xd at that time, and have started her on a daily aspirin. Per EMS, patient's O2 sat was 94% on RA, but was placed on cpap for WoB. Her breathing has significantly improved with steroids and nebs in the ED. Patient History 1. COPD (chronic obstructive pulmonary disease) 2. PVD (peripheral vascular disease) Social History Previous smoker, no etoh or drug use. Medications and Allergies Medications Home meds: ASA 324mg, metoprolol 50mg PO BID, Duoneb 4xd, prn benadryl Current Medications Sig/[place] Start time Last Medication Dose Route Stop Time Status Admin Azithromycin 250 MG DAILY 06/07 0900 AC PO Pantoprazole Sodium 40 MG DAILY@0600 06/07 0600 AC Sesquihydrate PO Ipratropium [place] 0.5 MG RTQ6H 06/06 1400 AC 06/06 IN 1333 Levalbuterol HCl 1.25 MG RTQ6H 06/06 1400 AC 06/06 IN 1333 Methylprednisolone 40 MG Q8HR 06/06 1400 AC Sodium Succinate IV Metoprolol Tartrate 50 MG TID 06/06 1400 AC PO Azithromycin 500 MG ONCE 06/06 1245 AC PO Metoprolol Tartrate 5 MG Q4H PRN 06/06 1245 AC IV Sodium Chloride 3 ML ASDIRECTED 06/06 1230 AC IN Enoxaparin Sodium 40 MG QAM 06/06 1133 AC SC Acetaminophen 650 MG Q6H PRN 06/06 1130 AC PO Docusate Sodium 250 MG BID PRN 06/06 1130 AC PO Morphine Sulfate 1 MG Q4H PRN 06/06 1130 AC IV Ondansetron HCl 4 MG Q6H PRN 06/06 1130 AC IV Allergies Coded Allergies: Albuterol (01/30/13) Prednisone (01/30/13) Pseudoephedrine (01/30/13) Review of Systems Other As per HPI, rest of 10point ROS notable for ischemic R 5th toe that is painful, chronic Physical Exam Vital Signs / I&Os Vital Signs Date Time Temp Pulse Resp B/P Pulse O2 O2 Flow FiO2 Ox Delivery Rate 06/06 1333 2.0 06/06 1256 98.2 109 21 111/43 94 Nasal 2.0 Cannula 06/06 0818 2.0 General Appearance Alert, Oriented X3, No acute distress HEENT Atraumatic, PERRLA, Moist mucous membranes Lungs Prolonged expiration and diffuse expiratory wheezing, good air movement. Neck Supple, No JVD Cardiovascular Tachy and irregular rhythm, no murmurs Abdomen Normal bowel sounds, Soft, No tenderness Extremities No edema, R 5th toe purple and tender to touch Skin No Rashes Neurological Normal speech, Normal tone, Sensation intact, Strength 5/5 x4 ext's , No lateralizing signs Psych/Mental Status Mental status normal LAB Results Laboratory Tests 06/06 06/06 06/06 06/06 0845 0845 0845 0844 Chemistry Plasma Sodium (136 - 145 mmol/L) 140 Plasma Potassium (3.5 - 5.1 mmol/L) 3.9 Plasma Chloride (98 - 107 mmol/L) 101 CO2 (Enzymatic) (21 - 32 mmol/L) 31 BUN (7 - 18 mg/dL) 11 Creatinine (0.6 - 1.3 mg/dL) 0.8 Est GFR ( Amer) (mL/min) >60 Est GFR (Non-Af Amer) (mL/min) >60 Glucose (70 - 110 mg/dL) 123 Lactic Acid (0.4 - 2.0 mmol/L) 1.3 Plasma Calcium (8.5 - 10.1 mg/dL) 9.0 Total Bilirubin (0.0 - 1.0 mg/dL) 0.6 AST (15 - 37 U/L) 26 ALT (12 - 78 U/L) 32 Alkaline Phosphatase (46 - 116 U/L) 113 Troponin (0.00 - 1.5 ng/mL) <0.05 Cancelled B-Natriuretic Peptide (5 - 100 pg/ml) 465 Total Protein (6.4 - 8.2 g/dL) 6.8 Albumin (3.3 - 5.0 g/dL) 3.2 Hematology WBC (4.5 - 11.5 K/uL) 11.4 RBC (4.00 - 5.20 M/uL) 4.48 Hgb (12.0 - 16.0 gm/dL) 9.0 Hct (36.0 - 46.0 %) 29.8 MCV (80 - 100 fL) 66 MCH (26 - 34 pg) 20 RDW (11.6 - 14.8 %) 22.4 Neut % (Auto) (50 - 75 %) 76 Lymph % (Auto) (25 - 40 %) 15 [place] % (Auto) (3 - 14 %) 5 Eos % (Auto) (0 - 4 %) 0 Baso % (Auto) (0 - 2 %) 2 Band Neutrophils % (0 - 8 %) 2 Metamyelocytes % (0 - 1 %) 0 Myelocytes (0 - 1 %) 0 Other Cell Type 0 Plt Count, EDTA (150 - 400 K/uL) 498 Hypochromic-Microcytic 4+ Anisocytosis (manual) 4+ Target Cells 1+ Schistocytes 1+ PUBS MCHC (31 - 37 g/dL) 30 Microbiology Date/Time Procedure - Status Source Growth 06/06 1130 Influenza Screen - COMP NASALPHAR Imaging EKG: initial sinus rhythm, repeat afib w/ RVR Assessment and Plan Problem List 1. Acute exacerbation of chronic obstructive pulmonary disease (COPD) Plan With mild hypoxic respiratory failure, as she is currently requiring O2. Will place on solu-medrol 40mg Q8h for today, and monitor for adverse reaction ( patient has gotten rashes with prednisone in the past). Placed on scheduled nebs (with xopenex due to afib w/rvr +ipratropium). No PNA on CXR, so will place on azithromycin for anti-inflammatory effect. Wean O2 as possible. Will test for influenza. 2. Atrial fibrillation with rapid ventricular response Plan Will use xopenex for nebulizer, as this episode seemed to be precipitated by the hour long albuterol neb in the ED. Given several doses of diltiazem in the ED with improvement in her symptoms. Have increased her home metoprolol to 50mg TID, and will monitor her carefully on telemetry. Will continue her on a daily aspirin. 3. PVD (peripheral vascular disease) Plan Continue on aspirin. S/p stenting just a couple days ago, and will follow up with her doctor as an outpatient. FEN: cardiac PPx: lovenox Code: DNR/DNI, per discussion w/ patient and family in ED Dispo: Inpatient for close cardiac monitoring and oxygen support, as will likely require >2MN hospital stay. E&M Codes Admission: Inpt-High/58048
[2016-06-06 14:26] VITALS: BP 120/63
[2016-06-06] MEDS ORDERED: ASPIRIN325 MG PO (17:59)
[2016-06-06] MEDS ORDERED: LOPRESSOR25 MG PO (18:01)
[2016-06-06] MEDS ORDERED: IPRATROPIUM BROMIDE/ (18:02)
[2016-06-06] MEDS ORDERED: BENADRYL ALLERG25 MG PO (18:03)
[2016-06-06 18:22] VITALS: BP 124/62
[2016-06-06 22:30] VITALS: BP 119/51
[2016-06-07 02:42] VITALS: BP 138/55
[2016-06-07 06:40] VITALS: BP 151/63
--- NOTE | 2016-06-07 09:15 | Progress Note ---
Subjective General Breathing a little better, but not at baseline yet. Still requiring O2, and becomes quite dyspnic with ambulation. Also feels very congested. Physical Exam Vital Signs / I&Os Vital Signs Date Time Temp Pulse Resp B/P Pulse O2 O2 Flow FiO2 Ox Delivery Rate 06/07 0830 Nasal 2.0 Cannula 06/07 0820 2.0 06/07 0640 98.2 85 21 151/63 95 Nasal 2.0 Cannula 06/07 0242 98.1 82 21 138/55 95 Room Air 2.0 05 0104 2.0 02/04 2230 98.1 79 21 119/51 98 Room Air 2.0 02/ 2045 Room Air 2.0 /04 1903 2.0 02/04 1822 98.2 109 21 124/62 97 Room Air 2.0 02/04 1426 98.2 109 21 120/63 98 Nasal 2.0 Cannula 06/06 1333 2.0 02/ 1256 98.2 109 21 111/43 94 Nasal 2.0 Cannula 06/06 1230 Nasal 2.0 Cannula I&O 06/07 0000 06/06 1600 06/06 0800 Intake Total 500 0 Output Total 325 0 Balance 175 0 General Appearance Alert, Oriented X3, No acute distress Lungs Prolonged expiration, and with expiratory wheeze and an odd clicking sound with expiration. Cardiovascular Regular rate and rhythm, Normal S1 and S2, No murmurs, gallops, rubs Abdomen Normal bowel sounds, Soft, No tenderness Extremities No edema Skin No Rashes Neurological No lateralizing signs Assessment and Plan Problem List 1. Acute exacerbation of chronic obstructive pulmonary disease (COPD) Plan Still working on weaning O2. Continue solu-medrol, scheduled xopenex/ ipratropium, and azithromycin. Flu swab negative. 2. Atrial fibrillation with rapid ventricular response Plan Coverted to sinus overnight, and likely 2/2 hour long albuterol neb on presentation. Will continue on lopressor. Her Chads-vasc score is 4, placing her at 4% risk of stroke yearly. I discussed this with the patient, and she absolutely does not want to be placed on anticoagulation at this time, as she has had significant bruising from even just plavix. She is hesitant to even continue aspirin at this time, but was eventually agreeable to this. 3. PVD (peripheral vascular disease) Plan Continuing daily aspirin. Follows closely with a vascular surgeon. FEN: cardiac PPx: lovenox Code: DNR/DNI Dispo: Pending continued improvement in respiratory status. Will hopefully be ready for d/c in next 1-2 days. E&M Codes Rounding: Inpt-Moderate/57502
[2016-06-07 10:49] VITALS: BP 152/62
[2016-06-07 14:32] VITALS: BP 133/51
[2016-06-07 18:42] VITALS: BP 143/58
[2016-06-07 23:00] VITALS: BP 132/67
[2016-06-08] VITALS (7 sets, daily range): BP systolic 152–174; BP diastolic 59–74
--- NOTE | 2016-06-08 13:10 | Progress Note ---
Subjective General Pt doing well overnight. Pt has been seen to become more hypertensive since the weekend. Will titrate up beta meena and add an hafsa inhibitor. Pt additionally was seen to have a jump in her wbc, unsure to as whether secondary to steroids or infection. Will continue to trend cbc. Constitutional Denies: Fever, Chills, Sweats, Weakness, Malaise, Other. Eyes Denies: Pain, Vision Change, Conjunctival Inflammation, Eyelid Inflammation, Redness, Other. ENT Nasal Congestion. Denies: Ear Pain, Ear Discharge, Nose Pain, Nasal Discharge, Mouth Pain, Mouth Swelling, Throat Pain, Throat Swelling, Other. Respiratory Cough, SOB w/exertion, Wheezing. Denies: Dry, Hemoptysis, Pleuritic Pain, Sputum, Other. Cardiovascular Denies: Chest Pain, Palpitations, Orthopnea, PND, Edema, Light-headedness, Other. Gastrointestinal Denies: Nausea, Vomiting, Abdominal Pain, Diarrhea, Constipation, Melena, Hematochezia, Other. Genitourinary Denies: Dysuria, Frequency, Incontinence, Hematuria, Retention, Other. Musculoskeletal Denies: Neck Pain, Shoulder Pain, Arm Pain, Back Pain, Hand Pain, Leg Pain, Foot Pain, Other. Skin Denies: Rash, Lesions, Jaundice, Bruising, Other. Neurological Denies: Weakness, Numbness, Incoordination, Change in speech, Confusion, Seizures, Other. Physical Exam Vital Signs / I&Os Vital Signs Date Time Temp Pulse Resp B/P Pulse O2 O2 Flow FiO2 Ox Delivery Rate 06/08 1027 Nasal 2.0 Cannula 06/08 0942 97.5 83 20 167/64 95 Nasal 2.0 Cannula 06/08 0733 2.0 06/08 0633 97.3 74 22 174/70 93 Nasal 2.0 Cannula 06/08 0633 97.3 76 22 170/73 93 Nasal 2.0 Cannula 06/08 0316 2.0 06/08 0216 97.9 80 16 168/68 94 Nasal 2.0 Cannula 06/07 2300 98.2 71 17 132/67 98 Nasal 2.0 Cannula 06/07 2014 Nasal 2.0 Cannula 06/07 2008 2.0 02 1842 98.2 82 21 143/58 97 Nasal 2.0 Cannula 06/07 1432 98.2 95 21 133/51 94 Nasal 2.0 Cannula 06/07 1347 94 Nasal 2.0 Cannula 06/07 1347 84 Room Air 06/07 1316 2.0 I&O 06/07 0800 06/07 1600 06/08 0000 Intake Total 1180 300 Output Total 599 150 320 Balance -599 1030 -20 General Appearance Alert, Oriented X3, No acute distress HEENT Normal exam, PERRLA, EOMI Lungs - persistent poor air exchange, no wheezes noted Neck Supple, No JVD Cardiovascular Regular rate and rhythm, Normal S1 and S2, No murmurs, gallops, rubs Abdomen Normal bowel sounds, No tenderness, No guarding Extremities No clubbing, No tenderness Skin No Breakdown, No Significant Lesions Neurological Normal gait, Normal tone Psych/Mental Status Mood normal, Confused LAB Results Laboratory Tests 06/08 0514 Chemistry Plasma Sodium (136 - 145 mmol/L) 141 Plasma Potassium (3.5 - 5.1 mmol/L) 4.4 Plasma Chloride (98 - 107 mmol/L) 103 CO2 (Enzymatic) (21 - 32 mmol/L) 32 BUN (7 - 18 mg/dL) 19 Creatinine (0.6 - 1.3 mg/dL) 0.7 Est GFR ( Amer) (mL/min) >60 Est GFR (Non-Af Amer) (mL/min) >60 Glucose (70 - 110 mg/dL) 130 Plasma Calcium (8.5 - 10.1 mg/dL) 8.9 Hematology WBC (4.5 - 11.5 K/uL) 16.3 RBC (4.00 - 5.20 M/uL) 4.50 Hgb (12.0 - 16.0 gm/dL) 9.0 Hct (36.0 - 46.0 %) 29.9 MCV (80 - 100 fL) 66 MCH (26 - 34 pg) 20 RDW (11.6 - 14.8 %) 23.8 Neut % (Auto) (50 - 75 %) 93 Lymph % (Auto) (25 - 40 %) 5 [place] % (Auto) (3 - 14 %) 2 Eos % (Auto) (0 - 4 %) 0 Baso % (Auto) (0 - 2 %) 0 Band Neutrophils % (0 - 8 %) 0 Metamyelocytes % (0 - 1 %) 0 Myelocytes (0 - 1 %) 0 Other Cell Type GIANT PLATELETS SEEN Plt Count, EDTA (150 - 400 K/uL) 544 Hypochromic-Microcytic 1+ Poikilocytosis (manual 1+ Anisocytosis (manual) 2+ Microcytosis (manual) 1+ Macrocytosis (manual) 1+ PUBS MCHC (31 - 37 g/dL) 30 Assessment and Plan Problem List 1. Acute exacerbation of chronic obstructive pulmonary disease (COPD) Plan - present on exam this morning - pt has persistently poor air exchange - pt becomes breathless with having a conversation - will continue with steroids for the time being, - c/w steroids and antibioitics 2. Atrial fibrillation with rapid ventricular response Plan - currently pt is in atrial fibrillation albeit she is rate controlled - pt unwilling to try anti coagulation given poor response to anticoagulants in the past - will continue with current medication regimen 3. Leukocytosis Plan - pt has had a elevation in wbc overnight - most likely secondary to steroids - will continue to trend
[2016-06-09] VITALS (11 sets, daily range): BP systolic 147–179; BP diastolic 45–70
--- NOTE | 2016-06-09 17:39 | Progress Note ---
Subjective General Patient doing well today, patients breathing has improved. Patient however remains hypertensive. Patient went throught multiple hypertensive regimens with little to no change in bp. Patient is otherwise stable Constitutional Denies: Fever, Chills, Sweats, Weakness, Malaise, Other. Eyes Denies: Pain, Vision Change, Conjunctival Inflammation, Eyelid Inflammation, Redness, Other. ENT Denies: Ear Pain, Ear Discharge, Nose Pain, Nasal Discharge, Nasal Congestion, Mouth Pain, Mouth Swelling, Throat Pain, Throat Swelling, Other. Respiratory SOB w/exertion, Wheezing. Denies: Cough, Dry, Hemoptysis, Pleuritic Pain, Sputum, Other. Cardiovascular Denies: Chest Pain, Palpitations, Orthopnea, PND, Edema, Light-headedness, Other. Gastrointestinal Denies: Nausea, Vomiting, Abdominal Pain, Diarrhea, Constipation, Melena, Hematochezia, Other. Genitourinary Denies: Dysuria, Frequency, Incontinence, Hematuria, Retention, Other. Musculoskeletal Denies: Neck Pain, Shoulder Pain, Arm Pain, Back Pain, Hand Pain, Leg Pain, Foot Pain, Other. Skin Denies: Rash, Lesions, Jaundice, Bruising, Other. Neurological Denies: Weakness, Numbness, Incoordination, Change in speech, Confusion, Seizures, Other. Physical Exam Vital Signs / I&Os Vital Signs Date Time Temp Pulse Resp B/P Pulse O2 O2 Flow FiO2 Ox Delivery Rate 06/09 180 147/45 06/09 1806 195/78 06/09 1635 156/60 06/09 1615 176/66 06/09 1453 97.3 76 20 160/60 96 Nasal 2.0 Cannula 06/09 1357 75 167/63 06/09 1346 2.0 06/09 1232 75 21 174/63 06/09 1138 176/65 06/09 1036 97.5 73 21 176/65 95 Nasal 2.0 Cannula 06/09 0803 2.0 06/09 0630 97.9 79 22 179/70 93 Nasal 2.0 Cannula 06/09 0247 2.0 06/09 0233 98.1 73 16 163/62 97 Nasal 2.0 Cannula 06/09 0031 2.0 06/08 2309 98.2 70 16 152/59 96 Nasal Cannula 06/08 1917 2.0 I&O 06/08 0800 06/08 1600 06/09 0000 Intake Total 540 880 200 Output Total 1375 600 Balance -835 880 -400 General Appearance Alert, Oriented X3, No acute distress HEENT Normal exam, PERRLA, Moist mucous membranes Lungs Clear to auscultation, Normal air movement Neck Supple, No JVD, No thyromegaly Cardiovascular Regular rate and rhythm, Normal S1 and S2 Abdomen Soft, No tenderness Extremities No clubbing, No edema, Normal pulses, No tenderness Skin No Rashes, No Breakdown Psych/Mental Status Mental status normal LAB Results Laboratory Tests 06/09 0525 Chemistry Plasma Sodium (136 - 145 mmol/L) 142 Plasma Potassium (3.5 - 5.1 mmol/L) 4.6 Plasma Chloride (98 - 107 mmol/L) 104 CO2 (Enzymatic) (21 - 32 mmol/L) 32 BUN (7 - 18 mg/dL) 20 Creatinine (0.6 - 1.3 mg/dL) 0.7 Est GFR ( Amer) (mL/min) >60 Est GFR (Non-Af Amer) (mL/min) >60 Glucose (70 - 110 mg/dL) 125 Plasma Calcium (8.5 - 10.1 mg/dL) 9.0 Total Bilirubin (0.0 - 1.0 mg/dL) 0.3 AST (15 - 37 U/L) 24 ALT (12 - 78 U/L) 40 Alkaline Phosphatase (46 - 116 U/L) 87 Total Protein (6.4 - 8.2 g/dL) 5.7 Albumin (3.3 - 5.0 g/dL) 2.7 Hematology WBC (4.5 - 11.5 K/uL) 11.2 RBC (4.00 - 5.20 M/uL) 4.77 Hgb (12.0 - 16.0 gm/dL) 9.2 Hct (36.0 - 46.0 %) 31.3 MCV (80 - 100 fL) 66 MCH (26 - 34 pg) 19 RDW (11.6 - 14.8 %) 23.6 Gran % (53 - 90) 71.9 Lymph % (Auto) (25 - 40 %) 16.3 [place] % (Auto) (3 - 14 %) 11.8 Plt Count, EDTA (150 - 400 K/uL) 574 RBC Morphology (36926 A) TARGET CELLS 1+ PUBS MCHC (31 - 37 g/dL) 30 Assessment and Plan Problem List 1. Acute exacerbation of chronic obstructive pulmonary disease (COPD) Plan - resolving - pts exam this morning revealed minimal wheezing - will continue to taper down steroid regimen 2. Leukocytosis Plan - resolved - secondary to steroids - will stop obtaining cbcs 3. Atrial fibrillation with rapid ventricular response Plan - resolved - pt currently rate controlled 4. Uncontrolled hypertension Plan - Pt has been having hypertension since yesterday - Pt has tried a litanny of drugs with little to no improvement - pt claims to have white coat hypertension and that this is a common occurance for her - will attempt clonidine if pressure remains elevated
--- NOTE | 2016-06-09 21:42 | ED MED RECONCILIATION SUMMARY ---
Patient: GAVINO CLEVELAND Medication Reconciliation Report [facility] VisitID: [id number] [address] [place] [address] 80y, F Registration Date/Time: 06/06/2016 Weight: 65.7 kg Height/Length: 60 in. BMI: 28.3 ALLERGIES: Sudafed The patient's Home Medications are listed below: THE FOLLOWING MEDICATIONS NEED TO BE RECONCILED: Benadryl Oral Ipratropium-Albuterol Inhalation (0.5-2.5 (3) mg/3mL) Metoprolol Tartrate Oral 25 mg, bid Uses oxygen at night The source(s) of the original Home Medication information: Not obtained. The following Medications were given to the patient in the Emergency Department: Albuterol [Neb Tx] Neb TX 3 unit dose, administered: 06/06/2016 8:28:00 AM Decadron [IVP] IVP 10 mg, administered: 06/06/2016 8:40:00 AM Cardizem [IVP] IVP 12 mg, administered: 06/06/2016 9:41:00 AM Diltiazem [IVP] IVP 10 mg, administered: 06/06/2016 10:21:00 AM Diltiazem [PO] PO 30 mg, administered: 06/06/2016 10:21:00 AM Rocephin [IVPB] IVPB bolus 0, then 2 gm 150 mL/hr, administered: 06/06/2016 10:23:00 AM The following Medications were prescribed to the patient: None.
--- NOTE | 2016-06-09 21:42 | ED MAR SUMMARY ---
..... Medication Administration Record [facility] [address] [place] [address] Patient: GAVINO CLEVELAND Visit ID: [id number] 80y, F Weight: 65.7 kg Height/Length: 60 in BMI: 28.3 ALLERGIES: Sudafed Given 08:28 06/06/2016 Etelvina Harper,, Stop 09:20 06/06/2016 Larissa Mcdaniel R.N. Medication Administered: ALBUTEROL [NEB TX], Dose: 3 unit dose Nebulizer Neb TX. Medication Ordered: Albuterol Neb Tx 7.5 mg (one now over 1 hour). Given 08:40 06/06/2016 Larissa Mcdaniel R.N. Medication Administered: DECADRON [IVP], Dose: 10 mg IVP over 2 minute(s), Site: #1 right AC. Medication Ordered: Decadron IV 10 mg (NOW). Given 09:41 06/06/2016 Larissa Mcdaniel R.N. Medication Administered: CARDIZEM [IVP], Dose: 12 mg IVP over 2 minute(s), Site: #1 right AC. Medication Ordered: Cardizem IV 12 mg IV (NOW). Given 10:06/06/2016 Larissa Mcdaniel R.N. Medication Administered: DILTIAZEM [IVP], Dose: 10 mg IVP over 2 minute(s), Site: #1 right AC. Medication Ordered: Diltiazem IV 10 mg (NOW). Given 10:21 06/06/2016 Larissa Mcdaniel R.N. Medication Administered: DILTIAZEM [PO], Dose: 30 mg Capsules PO. Medication Ordered: Diltiazem PO 30 mg (NOW). Start 10:23 06/06/2016 Larissa Mcdaniel R.N., Stop 10:55 06/06/2016 Larissa Mcdaniel R.N. Medication Administered: ROCEPHIN [IVPB] (CEFTRIAXONE SODIUM), Dose: 2 gm IVPB over 30 minute(s), Rate: 150 mL/hr, Dispensed: 50 mL bag, Site: #1 right AC. Medication Ordered: Rocephin IV 2 gm/50mL (NOW).
--- NOTE | 2016-06-09 21:42 | ED MED RECONCILIATION SUMMARY ---
Patient: GAVINO CLEVELAND Medication Reconciliation Report [facility] VisitID: [id number] [address] [place] [address] 80y, F Registration Date/Time: 06/06/2016 Weight: 65.7 kg Height/Length: 60 in. BMI: 28.3 ALLERGIES: Sudafed The patient's Home Medications are listed below: THE FOLLOWING MEDICATIONS NEED TO BE RECONCILED: Benadryl Oral Ipratropium-Albuterol Inhalation (0.5-2.5 (3) mg/3mL) Metoprolol Tartrate Oral 25 mg, bid Uses oxygen at night The source(s) of the original Home Medication information: Not obtained. The following Medications were given to the patient in the Emergency Department: Albuterol [Neb Tx] Neb [place] 3 unit dose, administered: 06/06/2016 8:28:00 AM Decadron [IVP] IVP 10 mg, administered: 06/06/2016 8:40:00 AM Cardizem [IVP] IVP 12 mg, administered: 06/06/2016 9:41:00 AM Diltiazem [IVP] IVP 10 mg, administered: 06/06/2016 10:21:00 AM Diltiazem [PO] PO 30 mg, administered: 06/06/2016 10:21:00 AM Rocephin [IVPB] IVPB bolus 0, then 2 gm 150 mL/hr, administered: 06/06/2016 10:23:00 AM The following Medications were prescribed to the patient: None.
--- NOTE | 2016-06-09 21:42 | ED DISCHARGE INSTRUCTIONS ---
Patient: GAVINO CLEVELAND General Instructions [facility] VisitID: [id number] [place] [address] 80y, F Registration Date/Time: 06/06/2016 Acute exacerbation of COPD (emphysematous) ,paroxysmal atrial fibrillation. The patient has one or more high risk factors and/or two or more moderate risk factors for thromboembolism. The patient is not prescribed warfarin or another FDA approved anticoagulant because the cause of the atrial fibrillation is reversible or transient. ADDITIONAL INFORMATION COPD Flare Both emphysema and chronic bronchitis are forms of chronic obstructive pulmonary disease (COPD). It is most often caused by many years of smoking tobacco. Many things can make your lung disease suddenly get worse. These causes include the common cold, pneumonia, acute bronchitis, missing doses of your regular breathing medicines, or being around smoke, dust, or other air pollutants. A COPD flare may last 7 to 14 days. Your doctor may prescribe medicineto relax your airways and prevent wheezing. Your doctor may also prescribe antibiotics if he or she thinks you havea bacterial infection. Prednisone can helpease inflammation in a severe attack. Home care Here are things you can do at home: Drink lots of water or other fluids (at least 10 glasses a day) during an attack. This will loosen lung secretions and make it easier to breathe. If you have heart or kidney disease, check with your doctor before you drink extra amounts of fluids. Take prescribed medicine exactly at the times advised. If you have a hand-held inhaler or aerosol breathing medicine, don't use it more than once every 4 hours, unless your doctor tells you to. If you were givenan antibiotic or prednisone, take all of the medicine even if you are feeling better after a few days. Don't smoke. Avoid being aroundthe smoke of others. If you were given an inhaler, use it exactly as directed. If you need to use it more often than prescribed, your condition may be getting worse. Call your doctor. Follow-up care Follow up with your health care provider.If you are 65 or older or have chronic asthma or COPD, you should get a single dose of the pneumococcal vaccine and aflu shot each year. You may need a second dose of the pneumococcal vaccine if you had the first dose at a younger age. Your health care provider will let you know if you need a second dose. For all other people, the usual dose for the pneumococcal vaccine is 1 or 2 shots. Yourprovider can discuss this with you. When to seek medical care Get prompt medical attention ifany of these occur: Increased wheezing or shortness of breath Need to use your inhalers more often than usual without relief Fever of 100.4F(38C) or higher, or as directed by your health care provider Coughing up lots of dark-colored or bloody sputum (mucus) Chest pain with each breath You do not start to improve within 24 hours Arrhythmia Electrical impulses cause the normal heart to beat 60 to 100 times a minute. These impulses come from a natural pacemaker deep inside the heart muscle. Each impulse causes the heart muscle to contract. This causes the blood to flow through the heart and out to the tissues and organs of your body. An arrhythmia is a change from the normal speed or pattern of these electrical impulses. This can cause the heart to beat too fast (tachycardia); or too slow (bradycardia); or in an unsteady pattern (irregular rhythm). Symptoms of arrhythmias Different people experience arrhythmias differently. Sometimes they may not have symptoms, but just notice a change in their pulse. Symptoms can include: Fluttering feeling in the chest Shortness of breath Chest pain or pressure Lightheadedness or dizziness Fainting or nearly fainting Palpitations Tiredness, fatigue, or weakness Causes of arrhythmias Arrhythmias are most often due to heart disease such as: Coronary artery disease (arteriosclerosis) Disease of the heart valves Enlarged heart High blood pressure Heart failure Other causes ofarrhythmia include: Certain medicines (such as asthma inhalers and decongestants) Some herbal supplements Cardiac stimulant drugs (such as cocaine, amphetamine, diet pills, certain decongestant cold medicines, caffeine, and nicotine) Excessive alcohol use Medical conditions such as thyroid disease, anemia, anxiety, and panic disorder Arrythmias can often be prevented. The cause and type of arrhythmia determines the best treatment. Sometimes your doctor may want to monitor your heart rate over a 24-hour period or longer. This can help identify the cause of your arrhythmia and find the best treatment. This can be done with a Holter monitor,a portable EKG recording device attached by wires to your chest. You can carry this with you as you perform your routine activities during the monitoring period. Home care Avoid cardiac stimulants (such as cocaine, amphetamine, diet pills, certain decongestant cold medicines, caffeine, and nicotine). If you smoke, stop smoking. Contact your doctor or a local stop-smoking program for help. Tell your doctor about any prescription, [id number] or herbal medicines you take. These may be affecting your heart rhythm. Follow-up care Follow up with your health care provider or as advised by our staff. If a Holter monitor has been recommended, contact the cardiologistyou have been referred toas soon as you canpick up the device. Other outpatient tests may also be arranged for you at that time. Call 911 This is the fastest and safest way to get to the emergency department. The paramedics can also start treatment on the way to the hospital, if needed. Don'twait until your symptoms are severe to call 911. Other reasons to call 911 besides chest pain include: Chest, shoulder, arm, neck, or back pain Shortness of breath Feeling lightheaded, faint, or dizzy Rapid heart beat Slower than usual heart rate compared to your normal Angina withweakness, dizziness, fainting, heavy sweating, nausea, or vomiting Extreme drowsiness, or confusion Weakness of an arm or leg or one side of the face Difficulty with speech or vision When to seek medical care Remember, things are not always like they are on TV. Sometimes it is not so obvious. You may only feel weak or just "not right." If it is not clear or if you have any doubt, call for advice. Seek help for chest pain, or it feels different from usual, even if your symptoms are mild. Do not drive yourself. Have someone else drive. If no one can drive you, call 911. If your doctor has given you medicines to take when you have symptoms, take them, but do not delay getting help while trying to find them. Do not delay. Fast diagnosis and treatment can prevent or limit the amount of heart damage during a heart attack or stroke. Do not go to your doctor's ofice or a clinic because they will not be able to provide all of the testing or treatment required for this condition. You have been given the following additional information: COPD Flare Arrhythmia, Unspecified (Electronically signed by Klaus Argueta MD 06/09/2016 21:42)
--- NOTE | 2016-06-09 21:42 | ED MAR SUMMARY ---
..... Medication Administration Record [facility] [address] [place] [address] Patient: GAVINO CLEVELAND Visit ID: [id number] 80y, F Weight: 65.7 kg Height/Length: 60 in BMI: 28.3 ALLERGIES: Sudafed Given 08:28 06/06/2016 Etelvina Harper,, Stop 09:20 06/06/2016 Larissa Mcdaniel R.N. Medication Administered: ALBUTEROL [NEB TX], Dose: 3 unit dose Nebulizer Neb TX. Medication Ordered: Albuterol Neb Tx 7.5 mg (one now over 1 hour). Given 08:40 06/06/2016 Larissa Mcdaniel R.N. Medication Administered: DECADRON [IVP], Dose: 10 mg IVP over 2 minute(s), Site: #1 right AC. Medication Ordered: Decadron IV 10 mg (NOW). Given 09:41 06/06/2016 Larissa Mcdaniel R.N. Medication Administered: CARDIZEM [IVP], Dose: 12 mg IVP over 2 minute(s), Site: #1 right AC. Medication Ordered: Cardizem IV 12 mg IV (NOW). Given 10:06/06/2016 Larissa Mcdaniel R.N. Medication Administered: DILTIAZEM [IVP], Dose: 10 mg IVP over 2 minute(s), Site: #1 right AC. Medication Ordered: Diltiazem IV 10 mg (NOW). Given 10:21 06/06/2016 Larissa Mcdaniel R.N. Medication Administered: DILTIAZEM [PO], Dose: 30 mg Capsules PO. Medication Ordered: Diltiazem PO 30 mg (NOW). Start 10:23 06/06/2016 Larissa Mcdaniel R.N., Stop 10:55 06/06/2016 Larissa Mcdaniel R.N. Medication Administered: ROCEPHIN [IVPB] (CEFTRIAXONE SODIUM), Dose: 2 gm IVPB over 30 minute(s), Rate: 150 mL/hr, Dispensed: 50 mL bag, Site: #1 right AC. Medication Ordered: Rocephin IV 2 gm/50mL (NOW).
[2016-06-10 01:29] VITALS: BP 175/67
[2016-06-10 06:37] VITALS: BP 175/74
[2016-06-10 10:35] VITALS: BP 167/64
--- NOTE | 2016-06-10 14:00 | Progress Note ---
Subjective General Pt doing well overnight. Pts hypertension appears to be linked to her pain level. When patients pain is controlled appropriately we find that her blood pressure responds accordingly. Patient will be seen by vascular surgery today, and once that is complete patient will be discharged Constitutional Denies: Fever, Chills, Sweats, Weakness, Malaise, Other. Eyes Denies: Pain, Vision Change, Conjunctival Inflammation, Eyelid Inflammation, Redness, Other. Respiratory Cough, SOB w/exertion. Denies: Dry, Wheezing, Hemoptysis, Pleuritic Pain, Sputum, Other. Cardiovascular Denies: Palpitations, Edema. Gastrointestinal Denies: Nausea, Vomiting, Abdominal Pain, Diarrhea, Constipation, Melena, Hematochezia, Other. Genitourinary Denies: Dysuria, Frequency, Incontinence, Hematuria, Retention, Other. Musculoskeletal Foot Pain. Denies: Neck Pain, Shoulder Pain, Arm Pain, Back Pain, Hand Pain, Leg Pain, Other. Skin Denies: Rash, Lesions, Jaundice, Bruising, Other. Neurological Denies: Weakness, Numbness, Incoordination, Change in speech, Confusion, Seizures, Other. Physical Exam Vital Signs / I&Os Vital Signs Date Time Temp Pulse Resp B/P Pulse O2 O2 Flow FiO2 Ox Delivery Rate 06/10 1317 2.0 06/10 1155 167/64 06/10 1035 97.5 68 18 167/64 97 Nasal 2.0 Cannula 06/10 0959 2.0 06/10 0742 2.0 06/10 0637 97.9 71 18 175/74 96 Nasal 2.0 Cannula 06/10 0624 175/67 06/10 0129 98.2 75 16 175/67 94 Nasal 2.0 Cannula 06/10 0109 2.0 06/09 2245 2.0 06/09 2223 97.9 73 18 155/69 95 Nasal 2.0 Cannula 06/09 2136 160/62 06/09 1913 2.0 06/09 1900 98.2 74 20 160/62 96 Nasal 2.0 Cannula 06/09 1807 147/45 02 1806 195/78 06/09 1635 156/60 06/09 1615 176/66 02 1453 97.3 76 20 160/60 96 Nasal 2.0 Cannula 06/09 1357 75 167/63 I&O 02/07 0800 06/09 1600 06/10 0000 Intake Total 350 320 620 Output Total 400 675 675 Balance -50 -355 -55 General Appearance Alert, Oriented X3, No acute distress HEENT PERRLA, Moist mucous membranes Lungs Clear to auscultation, Normal air movement Neck No masses, No thyromegaly Cardiovascular Normal S1 and S2, No murmurs, gallops, rubs Abdomen Soft, No tenderness, No rebound Extremities No edema, Normal pulses LAB Results Laboratory Tests 06/10 05 Chemistry Plasma Sodium (136 - 145 mmol/L) 141 Plasma Potassium (3.5 - 5.1 mmol/L) 4.8 Plasma Chloride (98 - 107 mmol/L) 103 CO2 (Enzymatic) (21 - 32 mmol/L) 32 BUN (7 - 18 mg/dL) 20 Creatinine (0.6 - 1.3 mg/dL) 0.6 Est GFR ( Amer) (mL/min) >60 Est GFR (Non-Af Amer) (mL/min) >60 Glucose (70 - 110 mg/dL) 116 Plasma Calcium (8.5 - 10.1 mg/dL) 8.7 Total Bilirubin (0.0 - 1.0 mg/dL) 0.3 AST (15 - 37 U/L) 21 ALT (12 - 78 U/L) 45 Alkaline Phosphatase (46 - 116 U/L) 82 Total Protein (6.4 - 8.2 g/dL) 5.8 Albumin (3.3 - 5.0 g/dL) 2.8 Assessment and Plan Problem List 1. Acute exacerbation of chronic obstructive pulmonary disease (COPD) Plan - stable - pt tolerating nasal cannula - decreased work of breathing seen on am exam - adquate air exchange - will continue with steroid taper 2. Atrial fibrillation with rapid ventricular response Plan - currently rate controlled - pt does not want anticoagulation currently - will continue to monitor on tele 3. Uncontrolled hypertension Plan - Pts blood pressure controlled relatively well overnight - Pts bp linked to her pain response - will adequately control pain and monitor bp - if stable will consider dc today
[2016-06-10 14:48] VITALS: BP 171/61
[2016-06-10 18:12] VITALS: BP 166/64
[2016-06-10 22:40] VITALS: BP 149/60
[2016-06-11 02:50] VITALS: BP 169/62
[2016-06-11 07:04] VITALS: BP 167/62
[2016-06-11 11:15] VITALS: BP 161/62
[2016-06-11 12:07] VITALS: BP 167/62
[2016-06-11] MEDS ORDERED: VICODIN EQUIVAL1 TAB PO (13:45)
[2016-06-11] MEDS ORDERED: HYDRALAZINE HCL10 MG PO (13:46)
[2016-06-11] MEDS ORDERED: PREDNISONE20 MG PO (13:47)
--- NOTE | 2016-06-11 13:50 | Provider's Discharge Care Plan ---
Problem, Goal, Plan Problem List 1. Acute exacerbation of chronic obstructive pulmonary disease (COPD) Instructions: -take steroid taper as prescribed 2. COPD (chronic obstructive pulmonary disease) Instructions: Follow up as needed (- c/w ), c/w inhalers, take steroid taper 3. PVD (peripheral vascular disease) Instructions: - follow up appointment tomorrow 4. Uncontrolled hypertension Instructions: - c/w metoprolol, please see your primary care doctor in one week, to determine whether you need additional medicine
[2016-06-11 14:56] VITALS: BP 131/64
--- NOTE | 2016-06-17 19:47 | CONSULTATION REPORT ---
DATE OF CONSULTATION: 06/10/2016 CHIEF COMPLAINT: 1. Painful left small toe HISTORY OF PRESENT ILLNESS: The patient is an 80-year-old woman with painful left small toe. This has come on fairly acutely and the patient has known peripheral vascular disease. She was seen in the office on 05/12/2016, and at that point, she developed a blue toe about 1-1/2 weeks previously and it was of a waxing and waning nature. She has also had increasing episodes of rest pain with foot elevation, but she does not seem to have pain in her major muscle groups. The rest pain typically occurs at night when the leg is elevated. The patient recently on 06/02/2016 underwent a right iliac angioplasty and stenting. 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 The films were reviewed and the femoral artery reconstitution was not easily seen. PHYSICAL EXAMINATION: EXTREMITIES: This patient continues to have a blue toe without actual gangrene. There are no palpable pulses in the left foot and the left groin pulse is very weak to nonpalpable. The foot is cool, but not imminently threatened. IMPRESSION: 1. Ischemia of left foot including rest pain and a threatened left fifth toe. PLAN: I contacted the vascular surgery service at [facility] and talked to Nevaeh Spring PA-C. I explained the situation to her and she expressed a willingness to accept this patient in transfer for possible endovascular intervention. I will set this up through the nursing staff and arrange for a transfer once we have coordinated with the interventional service and if this is successful, then hopefully this will solve her problem. If not, this patient could return for a femoral-femoral bypass graft if this winds up being her other main option.
--- NOTE | 2016-07-04 07:04 | Discharge Summary ---
Discharge Summary Report Admit Date 06/06/16 Discharge Date 07/09/16 Admission Diagnosis copd exacerbation Discharge Diagnosis copd exacerbation Brief History 80yoF w/ hx of COPD, PVD, parox afib, who presents due to worsening SOB since last night. She states that one of her family members came home with a cold a couple days ago. She has felt chilled at home, but has not taken her temperature. She only uses O2 at night usually. She has been using all her nebulizers as prescribed 4xd. She does not get exacerbations frequently. She endorses cough, nonproductive. She just had a stent placed in her ?iliac a couple days ago, and states that she went into afib at that time. They increased her lopressor to 50mg 2xd at that time, and have started her on a daily aspirin. Hospital Course Patient was admitted for copd exacerbation. Patient was placed on steroid antibiotics and frequent breathing treatments. Patient improved over the course of the next 3 days and her steroids were tapered accordingly. Patient additionally had an ulcer on her right lower extremity that needed to have an angiogram and subsequent treatment. The surgeons at this facility made arrangements for the patient to be treated at another facility with IR involvement. Patient lastly was seen to be persistenly hypertensive for the last 2 days of her admission. Depsite changes in her medication regimen patient did not have appropriate blood pressure control. It was later found that the patient had pain from her ulcer and was refusing treatment. Patient once treated had appropriate blood pressure control. Patient was subsequently transferred to the another hospital once her copd was stable. General Appearance Alert, Oriented X3, No acute distress HEENT Atraumatic, PERRLA, Mucous membran moist/pink Lungs Normal air movement Cardiovascular Normal S1, Normal S2 Abdomen Soft, No tenderness, No hepatospenomegaly, No masses Skin No Rashes Discharge Instructions/Meds - continue steroid taper - follow up with our surgery clinic - follow up with your pmd in 1 week
== END 2016-06-11 14:20 | disposition home or self-care (01) | DRG 190 ==
LOC: ED SRH 08:02 → TRANS SRH 10:02 → ACUTE2 SRH 11:33
PROVIDERS: ADMIT Internal Medicine
DX: J44.1 Chronic obstructive pulmonary disease with (acute) exacerbation (principal); J96.01 Acute respiratory failure with hypoxia; I70.262 Atherosclerosis of native arteries of extremities with gangrene, left leg; I70.92 Chronic total occlusion of artery of the extremities; I48.0 Paroxysmal atrial fibrillation; I10 Essential (primary) hypertension
CPT/HCPCS: 85241; 90004; 90047; 90074; 90100; 90616; 91320; 91400; 91643; 92031; 92720; 95059

== ENCOUNTER 2016-06-16 09:48 | Outpatient (CLI) | payer OTHER, BC ==
[~2016-06-16 09:48] MED LIST: ASPIRIN325 MG PO; BENADRYL ALLERG25 MG PO; HYDRALAZINE HCL10 MG PO; IPRATROPIUM BROMIDE/; LOPRESSOR25 MG PO; PREDNISONE20 MG PO; VICODIN EQUIVAL1 TAB PO
--- NOTE | 2016-06-16 11:04 | DIAGNOSTIC IMAGING REPORT ---
PROCEDURE: US VENOUS - LEFT EXT INDICATION: LLE PAIN,SWELLING R/O DVT TECHNIQUE: Duplex sonography of the deep venous system in the left lower extremity was performed. Compression and augmentation techniques were used. COMPARISON: None. FINDINGS: Each interrogated segment of deep vein from the common femoral vein into the calf veins demonstrates normal compressibility, augmentation and/or color Doppler flow without filling defect. 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 There is also a superficial femoral artery stenosis with peak velocities of 547 cm/sec. IMPRESSION: 1. No deep venous thrombosis in the left lower extremity. 2. 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 3. 2 cm Kirby's cyst.
== END 2016-06-16 23:00 ==
LOC: US SRH 09:48
DX: I70.202 Unspecified atherosclerosis of native arteries of extremities, left leg (principal); M71.22 Synovial cyst of popliteal space [Baker], left knee